=== PATIENT | female | born 1980 | race African-American/Black ===

== ENCOUNTER 2017-01-13 10:52 | Emergency (ER) | payer OTHER ==
[~2017-01-13] VITALS: Ht 165.1 cm; Wt 81.6 kg
[~2017-01-13 10:52] MED LIST: A/B OTIC 54 MG/15 ML OT; NASONEX0.05 MG/Ac INH; PEN-VK500 MG PO; ZOVIRAX5% MM
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
[2017-01-13 12:11] VITALS: BP 92/68
[2017-01-13] MEDS ORDERED: LIDODERM1 EACH TOP (12:16)
[2017-01-13] MEDS ORDERED: NAPROSYN500 M1 PO (12:16)
[2017-01-16] MEDS ORDERED: ROBAXIN500 M1 PO (11:59)
[2017-01-16] MEDS ORDERED: NORCO 5-325 TA1 EACH PO (11:59)
== END 2017-01-13 12:24 ==
LOC: ERH 10:52
DX: M54.9 Dorsalgia, unspecified (principal)
CPT/HCPCS: 96372; J1885

== ENCOUNTER 2017-09-26 11:34 | Inpatient (IN) | payer OTHER ==
[~2017-09-26] VITALS: Ht 162.6 cm; Wt 87.3 kg
[~2017-09-26 11:34] MED LIST changes: +LIDODERM1 EACH TOP; +NAPROSYN500 M1 PO; +NORCO 5-325 TA1 EACH PO; +ROBAXIN500 M1 PO
--- NOTE | 2017-09-26 11:41 | ED PSYCHIATRIC COMPLAINT ---
History of Present Illness General Chief Complaint: Psychiatric Related Complaint Stated Complaint: SI Source: patient, old records, EMS Exam Limitations: no limitations Allergies Coded Allergies: NO KNOWN ALLERGIES (08/22/15) Reconcile Medications Hydrocodone/Acetaminophen ([place] 5-325 Tablet) 5 MG-325 MG TABLET 1-2 TAB PO Q4-6 PRN PRN PAIN Lidocaine (Lidoderm) 5 % ADH..PATCH 1 PAT TOP DAILY PRN back pain may wear up to 12 hours Methocarbamol (Robaxin) 500 MG TABLET 1 TAB PO TID PRN MUSCLE SPASMS Naproxen (Naprosyn) 500 MG TABLET 1 TAB PO BID PRN back pain Triage Nurses Notes Reviewed? yes Onset: Abrupt Duration: week(s):, constant, getting worse Timing: recent history Severity: severe Severity Numbers: 10 Associated Symptoms: suicidal ideation (depression) HPI: 36-year-old female with history of anxiety for which she is prescribed clonidine presents to the ER for evaluation after her family called EMS when she sent a text message stating "I do not want to fight anymore". The patient admits to taking 5 clonidine pills prior to arrival in attempt to "go to sleep for a while " she arrives on please paper. On EMS arrival patient ran out of house crying. On arrival to the ER she states that she is tired of the daily struggle and nothing is going right for her. She denies taking anything else this morning. She smoked marijuana and had a glass of wine last night however denies any drug or alcohol use today. She denies chest pain abdominal pain nausea vomiting. She does not currently follow up with a p she currently lives alone with HER-2 children whom are currently with her mother or sister sychiatrist. She has a previous suicide attempt when she was younger by taking pills as well. (Fransisco Hair) Vital Signs & Intake/Output Vital Signs & Intake/Output Vital Signs Date Time Temp Pulse Resp B/P B/P Pulse O2 O2 Flow FiO2 Mean Ox Delivery Rate 09/26 1949 92/50 09/26 1803 66 86/62 09/26 1457 72 16 80/40 99 Room Air 09/26 1419 97.6 16 99 Room Air 09/26 1414 64 76/50 09/26 1300 64 74/38 09/26 1209 70/40 09/26 1156 98.1 75 18 87/64 100 Room Air (Noemi BENITEZ,Joel Moy) Past History Travel History Traveled to [place] past 21 day No Medical History Any Pertinent Medical History? 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 No (Fransisco Hair) Review of Systems Review of Systems Constitutional: Reports: see HPI. Comments Review of systems: See HPI, All other systems negative. 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 moist mucous membranes. Neck: Supple, normal range of motion Back: Nontender, no CVA tenderness. Full range of motion Cardiovascular: Regular rate and rhythms no murmur Respiratory: No respiratory distress. Patient speaking in full complete sentences. Breath sounds clear to auscultation bilaterally: NO W/R/R Extremity: No edema, full range of motion of extremities Neuro: Alert oriented x3, motor sensory normal, cranial nerves II through XII grossly intact. There were no obvious focal neurologic abnormalities. Skin: No appreciable rash on exposed skin, skin is warm and dry. Psych: Tearful, depressed, memory and judgment is normal. SAD PERSONS SAD PERSONS Response Value Depression/Hopelessness? yes 2 Previous Attempts/Psych Care yes 1 Single//? yes 1 Social Support? has support 0 Stated Future Intent? yes 2 Total 6 SAD PERSONS Done? yes (Fransisco Hair) Progress Differential Diagnosis: DEPRESSION, ANXIETY, POLYSUBSTANCE ABUSE (Fransisco Hair) Plan of Care: Orders Procedure Date/time Status Regular Diet 09/26 D Active Admit to inpatient psych 09/26 1858 Active Add-on Test (ER Only) 09/26 1416 Active EKG 09/26 1331 Active Add-on Test (ER Only) 09/26 1156 Active ACETOMINOPHEN 09/26 1147 Complete SALICYLATE 09/26 1147 Complete ED CRISIS PSYCH CONSULT 09/26 1144 Active Continuous Observation Monitor 09/26 1140 Active URINE 09/26 1140 Complete URINE DRUG SCREEN FOR ER ONLY 09/26 1140 Complete ETHANOL 09/26 1140 Complete COMPREHENSIVE METABOLIC PANEL 09/26 1140 Complete CBC WITHOUT DIFFERENTIAL 09/26 1140 Complete Current Medications Sig/Macie Start time Last Medication Dose Stop Time Status Admin Acetaminophen 650 MG Q4P PRN 09/26 1914 UNVr (Tylenol) Al Hydroxide/Mg 30 ML Q4-6 PRN PRN 09/26 1914 UNVr Hydroxide (Maalox Plus) Benztropine Mesylate 1 MG Q6P PRN 09/26 1914 UNVr (Cogentin 1 MG Tablet) Benztropine Mesylate 1 MG Q6P PRN 09/26 1914 UNVr (Cogentin) Haloperidol 5 MG Q6P PRN 09/26 1914 UNVr (Haldol) Haloperidol 5 MG Q6P PRN 09/26 1914 UNVr (Haldol) Ibuprofen 600 MG Q6P PRN 09/26 1914 UNVr (Motrin) Lorazepam 1.5 MG AT BEDTIME NEED.. 09/26 1914 UNVr (Ativan) Lorazepam 2 MG Q6P PRN 09/26 1914 UNVr (Ativan) Lorazepam 2 MG Q6P PRN 09/26 1914 UNVr (Ativan) Laboratory Tests 09/26/17 1147: Anion Gap 14, Estimated GFR > 60, BUN/Creatinine Ratio 20.0, Glucose 122 H, Calcium 9.0, Total Bilirubin 0.5, AST 18, ALT 24, Alkaline Phosphatase 53, Total Protein 7.2, Albumin 4.2, Globulin 3.0, Albumin/Globulin Ratio 1.4, CBC w Diff NO MAN DIFF REQ, RBC 3.94 L, MCV 89.8, MCH 29.6, MCHC 33.0, RDW 12.4, MPV 8.1, Gran % 68.7, Lymphocytes % 19.2 L, Monocytes % 5.2, Eosinophils % 6.5 H, Basophils % 0.4, Absolute Granulocytes 7.6 H, Absolute Lymphocytes 2.1, Absolute Monocytes 0.6, Absolute Eosinophils 0.7, Absolute Basophils 0, Salicylates < 1.0, Acetaminophen < 10.0 L, Serum Alcohol < 10.0 09/26/17 1146: Urine Opiates Screen < 100, Methadone Screen < 40, Barbiturate Screen < 60, Ur Phencyclidine Scrn < 6.00, Amphetamines Screen < 100, U Benzodiazepines Scrn < 85, Urine Cocaine Screen < 50, Urine Cannabis Screen > 80.00 H 09/26/17 1140: Urine Test NEGATIVE 1150- Crisis consult requested patient is awake, alert oriented 3 at this time. oldrecords reviewed- pts bp was noted to be low 94, 100 systolic in previous er visits. LABS ORDERED 1300 pt mentating well,remains hypotensiveafter 1 liter, case d/w dr hollis who eval pt, agrees with plan, 2 liters ordered. 2nd iv established-medications were verified with C patient was prescribed clonidine 0.1 mg and october I spoke with poison control who advised supportive care hydration observation period of 4 hours from ingestion 09/26/2017 2:22:56 PM patient mentating well, alert oriented times 3 repeat blood pressure 76/50. 1545- patient resting in no apparent distress denies any complaints (Fransisco Hair) Comments: 09/26/2017 1:24:13 PM per [facility]ist, no clonidine or klonopin recently, but clonodine 0.1mg qhs filled october 2015. (Noemi BENITEZ,Joel oMy) Departure Departure Time of Disposition: 184 Disposition: STILL A PATIENT Condition: Stable Clinical Impression Primary Impression: Depression Secondary Impressions: Suicide attempt Referrals: Unknown Departure Forms: Customer Survey General Discharge Information Psych Admission Note Psychiatric Admission: I have seen and evaluated DARYN PATTERSON. I have also reviewed all the pertinent lab results and diagnostic results. DARYN PATTERSON will be admitted to our inpatient Psychiatric unit for treatment and care. (Fransisco Hair) PA/BIOINFORMATICS SOFTWARE ENGINEER Co-Sign Statement Statement: ED Attending supervision documentation- [x] I saw and evaluated the patient. I have also reviewed all the pertinent lab results and diagnostic results. I agree with the findings and the plan of care as documented in the PA's/BIOINFORMATICS SOFTWARE ENGINEER's documentation. Patient presents for evaluation of depression with possible overdose of medication (it is unclear if the patient has ingested clonidine or Klonopin). She states the medication is written for hour of sleep as needed. Physical examination reveals a somnolent but otherwise interactive patient answering questions readily. Patient's physical examination reveals a nonfocal neurologic examination and depressed affect. [] I have reviewed the ED Record and agree with the PA's/BIOINFORMATICS SOFTWARE ENGINEER's documentation. [] Additions or exceptions (if any) to the PAs/BIOINFORMATICS SOFTWARE ENGINEER's note and plan are summarized below: [] (Noemi BENITEZ,Joel Moy)
[2017-09-26 11:56] LABS: ABSOLUTE BASOPHIL COUNT 0 /CUMM (0.0-0.2); ABSOLUTE EOSINOPHIL COUNT 0.7 /CUMM (0.0-0.7); ABSOLUTE GRANULOCYTE CT 7.6 /CUMM (1.4-6.5); ABSOLUTE LYMPH COUNT 2.1 /CUMM (1.2-3.4); ABSOLUTE MONOCYTE COUNT 0.6 /CUMM (0.10-0.60); BASOPHIL % 0.4 % (0.0-2.0); EOSINOPHIL % 6.5 % (0-5); GRANULOCYTE % 68.7 % (42.2-75.2); HEMATOCRIT 35.4 % (37-47); MEAN CORPUSCULAR HGB 29.6 PG (27.0-31.0); MEAN CORPUSCULAR VOLUME 89.8 FL (81.0-99.0); MEAN PLATELET VOLUME 8.1 FL (7.4-10.4); PLATELET COUNT 218 /CUMM (130-400); RBC DISTRIBUTION WIDTH 12.4 % (11.5-14.5); RED BLOOD CELL CT 3.94 /CUMM (4.20-5.40); WHITE BLOOD CELL COUNT 11.1 /CUMM (4.8-10.8)
--- NOTE | 2017-09-26 15:17 | ED PSY CRISIS COLLATERAL NOTE ---
See Addendum Collateral Note Collateral Note Family/Inform/Storm Contacts: Spoke with patient's mother, Elissa, who was the person who called to get help for the patient. Mother states that patient has been "stressed for a long time", largely due to finances. Mother reports that patient has not been in treatment, but feels that she should be. Mother states that she hopes that we can get her into counseling: so there was this agreement that patient needed help, but not such urgency as one might expect, given that patient was brought to [place] on a police paper, after texting that she didn't want to fight anymore, and took 5 clonidine to go to sleep. Patient has 2 children per mother, and her grandmother states that she is very close with them, and feels that patient is "a very good mother ". Patient's mother was anxious to learn what our plan is once it is established. [phone].
--- NOTE | 2017-09-26 16:16 | ED PSYCH CRISIS CONSULTATION ---
Crisis Consult Basic Assessment Date of Consult: 09/26/17 Responsible Person/Accompanied By: mother Khan Insurance Authorization: Insurance #1: Insurance name: KAREN Lentz [employer] Phone number: Policy number: [id number] Group number: Authorization number: ED Provider: Patient's ED Provider: Fransisco Hair Primary Care Physician: Patient's PCP: Patient Has No Primary Care Dr PCP's Phone Number: Current Psychiatrist: none Chief Complaint: Psychiatric Related "I'm Depression. Patient's Quote: "I'm disappointed in myself". I'm struggling." Present Illness: Patient is a 36 year old unmarried female who is the mother of 2 children, ages 7 and 14. Patient reports that there is no male in her life, and that neither child of hers has any relationship with their fathers. Patient had texted her mother and her sister today, stating that she was tired of fighting and just wanted to go to sleep, so she took 5 clonidine pills, and was drowsy. Patient's mother called 911, and patient was sent to [facility] on a police paper, due to her actions. Allergies - Coded Allergies: NO KNOWN ALLERGIES (08/22/15) Current Medications - Scheduled PRN Medications Hydrocodone/Acetaminophen ([place] 5-325 Tablet) 5 MG-325 MG TABLET 1-2 TAB PO Q4-6 PRN PRN PAIN #10 TAB Prescribed by Shanita Harper on 01/16/17 Lidocaine (Lidoderm) 5 % ADH..PATCH 1 PAT TOP DAILY PRN back pain #30 PAT Prescribed by Tiera Diallo on 01/13/17 Methocarbamol (Robaxin) 500 MG TABLET 1 TAB PO TID PRN MUSCLE SPASMS #15 TAB Prescribed by Shanita Harper on 01/16/17 Naproxen (Naprosyn) 500 MG TABLET 1 TAB PO BID PRN back pain #60 TAB Prescribed by Tiera Diallo on 01/13/17 Past History Past Medical History Neurological: NONE EENT: strep throat Cardiovascular: NONE Respiratory: NONE Gastrointestinal: NONE Hepatic: NONE Renal: NONE Musculoskeletal: NONE Psychiatric: anxiety, depression Endocrine: NONE Blood Disorders: NONE Cancer(s): 

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
--- NOTE | 2017-09-26 17:12 | ED PSYCH CRISIS CONSULTATION ---
Crisis Consult Basic Assessment Date of Consult: 09/26/17 Responsible Person/Accompanied By: came in on a PEER/ si attempt Insurance Authorization: Insurance #1: Insurance name: KAREN Lentz C&A Phone number: Policy number: [id number] Group number: Authorization number: ED Provider: Patient's ED Provider: Fransisco Hair Primary Care Physician: Patient's PCP: Patient Has No Primary Care Dr PCP's Phone Number: Current Psychiatrist: Dr. Henson Chief Complaint: Psychiatric Related Complaint Patient's Quote: "I took some pills" Present Illness: Pt is a 36 year old female she arrives on a PEER "she sent text messages to family members stating she did not want to fight anymore" and then took 5 "sleeping pills" or clondine.Pt was observed for 6 hours per poison control protocol, she was groggy but alert and oriented at the time of this eval. She expressed really very very sad, and not on anti depressants she had been prescribed vivance "for my adhd", but a few psychiatrists in [place], one of them "just disappeared", and her current one "treats my family for adhd, that is Dr. Henson. Pt states she has had one previous suicide attempt in which she needed her stomach pumped, she was younger and states she was not admitted to the hospital at that time. She states she has never been to IOP either, she offers " Im usually the one that my family comes to for support, Im smart and strong". Pt lives alone although she has a 14 year old and 7 year old the 14 year old lives with her Godmother in [place], and her son lives with her and stays with her Mother as well, he attends [employer] school in [place]. She states "stumbling blocks of life lead her to feel hopeless, I try to get a job and I went to school and I can't find a job, I feel isolated. Pt just moved to [place] as she was granted section 8 housing "I sleep here, my life is in [place]". Pt states "I can't believe my mind manifest into thinking I want to end my life". Pt uses marijuana and drinks occasionally. She denies hi/ah/vh. Her Mother is in support of her going inpatient as she states "she is depressed and needs help". It seems everything took its toll today, pt had difficulty signing in voluntarily, as she was feeling anxious about what inpatient would be like. Patient's Address: [address] [place] [address] [address] [place] [address] Other Phone Number: Who Do You Live With? Patient/Self Family/Informants Interviewed: see note/ informed Mother about admission and she was relieved feels daughter is in crisis. Allergies - Coded Allergies: NO KNOWN ALLERGIES (08/22/15) Current Medications - Scheduled PRN Medications Hydrocodone/Acetaminophen (Circle 5-325 Tablet) 5 MG-325 MG TABLET 1-2 TAB PO Q4-6 PRN PRN PAIN #10 TAB Prescribed by Shanita Harper on 01/16/17 Lidocaine (Lidoderm) 5 % ADH..PATCH 1 PAT TOP DAILY PRN back pain #30 PAT Prescribed by Tiera Diallo on 01/13/17 Methocarbamol (Robaxin) 500 MG TABLET 1 TAB PO TID PRN MUSCLE SPASMS #15 TAB Prescribed by Shanita Harper on 01/16/17 Naproxen (Naprosyn) 500 MG TABLET 1 TAB PO BID PRN back pain #60 TAB Prescribed by Tiera Diallo on 01/13/17 Laboratory Results: Laboratory Tests 09/26/17 1147: Anion Gap 14, Estimated GFR > 60, BUN/Creatinine Ratio 20.0, Glucose 122 H, Calcium 9.0, Total Bilirubin 0.5, AST 18, ALT 24, Alkaline Phosphatase 53, Total Protein 7.2, Albumin 4.2, Globulin 3.0, Albumin/Globulin Ratio 1.4, CBC w Diff NO MAN DIFF REQ, RBC 3.94 L, MCV 89.8, MCH 29.6, MCHC 33.0, RDW 12.4, MPV 8.1, Gran % 68.7, Lymphocytes % 19.2 L, Monocytes % 5.2, Eosinophils % 6.5 H, Basophils % 0.4, Absolute Granulocytes 7.6 H, Absolute Lymphocytes 2.1, Absolute Monocytes 0.6, Absolute Eosinophils 0.7, Absolute Basophils 0, Salicylates < 1.0, Acetaminophen < 10.0 L, Serum Alcohol < 10.0 09/26/17 1146: Urine Opiates Screen < 100, Methadone Screen < 40, Barbiturate Screen < 60, Ur Phencyclidine Scrn < 6.00, Amphetamines Screen < 100, U Benzodiazepines Scrn < 85, Urine Cocaine Screen < 50, Urine Cannabis Screen > 80.00 H 09/26/17 1140: Urine Test NEGATIVE Past History Past Medical History Neurological: NONE EENT: strep throat Cardiovascular: NONE Respiratory: NONE Gastrointestinal: NONE Hepatic: NONE Renal: NONE Musculoskeletal: NONE Psychiatric: anxiety, depression Endocrine: NONE Blood Disorders: NONE Cancer(s): NONE 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/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: NONE Past Surgical History Surgical History: non-contributory Psychosocial History Strengths/Capabilities: supportive family, finished school looks for job Physical Limitations (Interventions): unknown Psychiatric Treatment History Psych Treatment Psychiatric Treatment Yes Inpatient Treatment No Outpatient Treatment Yes Location of Treatment [place] Reason for Treatment Depression, ADHD Dates of Treatment on and off for many years Response to Treatment has some history of non compliance Diagnosis by History: ADHD, Depression Substance Use/Abuse History Drug Use/Abuse Substances Used/Abused Yes Substance Used/Abused Marijuana First Use early adulthood Last Used yesterday How much used/taken varies How often daily For how long years Route of use inhale Substance Abuse Treatment Substance Abuse Treatment Past Substance Abuse [place] No Current Mental Status Mental Status Orientation: Person, Place, Situation Affect: Anxious, Depressed, Flat, Hopeless, Inappropriate, Sad Speech: Soft Neuro-vegetative: Energy Decreased, Loss of Interest, Sleep Disturbance Appearance Appearance- Dress/Hygiene: tired, easily to fall asleep, arousable when approached Behaviors Thought Process: Disorganized, Irrational Thought Content: WNL Memory: WNL Insight: Poor SI/HI Risk Assessment Past Suicidal Ideation/Attempts Yes Current Suicidal Ideation/Att Yes Past Homicidal Ideation/Att: No Current Homicidal Ideation/Attempts No Degree of Intent: Made Preparations, Plan Danger To: Self Risk Factors: history of suicide atmpts, poor impulse control, lack of outcome concern, lives alone Lethality Ratin PTSD Checklist PTSD Done? pt unable to participate ED Management Sitter: Yes Restraints: No DSM5/PS Stressors/Medical Prob Diagnosis' (DSM 5, Stressors, Medical): MDD, moderate single episode F32.1 by hx ADHD Current GAF: 24 Departure Disposition Psych Medical Clearance Date: 09/26/17 Medically Cleared at: 1700 Time Started: 1700 Time Ended: 1800 Psychiatrist Consulted: Gera Date Disposition Established: 09/26/17 Time Disposition Established: 1800 Plan for Disposition - Modality: Inpatient Psychiatry Facility: [facility] Follow-up Appt Date: 09/26/17 Follow-Up Appt Time: 2010 Contact: Inpatient CPS Telephone: [phone] Rationale for Disposition: Consulted with Dr. Boss, pt attempted suicide today, she is minimizing this attempt, but has signed in volunarily. She is anxious about the process of admission, pt remains cooperative. Type of IP Admission: Voluntary Referrals Patient Has No Primary Care Dr (PCP/Family)
--- NOTE | 2017-09-26 20:30 | IP CRISIS DIAG ASSESS PSYCH ---
See Addendum Diagnostic Assessment Basic Assessment Insurance Authorization: Insurance #1: Insurance name: KAREN Lentz C&A Phone number: Policy number: [id number] Group number: Authorization number: Primary Care Physician: Patient's PCP: Patient Has No Primary Care Dr PCP's Phone Number: Patient's Quote: "I took some pills" Present Illness: Pt is a 36 year old female she arrives on a PEER "she sent text messages to family members stating she did not want to fight anymore" and then took 5 "sleeping pills" or clondine.Pt was observed for 6 hours per poison control protocol, she was groggy but alert and oriented at the time of this eval. She expressed really very very sad, and not on anti depressants she had been prescribed vivance "for my adhd", but a few psychiatrists in [place], one of them "just disappeared", and her current one "treats my family for adhd, that is Dr. Henson. Pt states she has had one previous suicide attempt in which she needed her stomach pumped, she was younger and states she was not admitted to the hospital at that time. She states she has never been to [facility] either, she offers " Im usually the one that my family comes to for support, Im smart and strong". Pt lives alone although she has a 14 year old and 7 year old the 14 year old lives with her Godmother in [place], and her son lives with her and stays with her Mother as well, he attends [employer] school in [place]. She states "stumbling blocks of life lead her to feel hopeless, I try to get a job and I went to school and I can't find a job, I feel isolated. Pt just moved to [place] as she was granted section 8 housing "I sleep here, my life is in [place]". Pt states "I can't believe my mind manifest into thinking I want to end my life". Pt uses marijuana and drinks occasionally. She denies hi/ah/vh. Her Mother is in support of her going inpatient as she states "she is depressed and needs help". It seems everything took its toll today, pt had difficulty signing in voluntarily, as she was feeling anxious about what inpatient would be like. Patient's Address: [address] [place] [address],[place] [address] Other Phone Number: Who Do You Live With? Patient/Self Feel Safe Where You Live? Yes Feel Safe in Your Relationship Yes Marital Status: single Do You Have Children? Yes Ages? 14,7 Primary Language? Montenegrin Language(s) Spoken At Home: Montenegrin Family/Informants Interviewed: see note/ informed Mother about admission and she was relieved feels daughter is in crisis. Allergies - Coded Allergies: NO KNOWN ALLERGIES (08/22/15) Current Medications - Scheduled PRN Medications Hydrocodone/Acetaminophen ([place] 5-325 Tablet) 5 MG-325 MG TABLET 1-2 TAB PO Q4-6 PRN PRN PAIN #10 TAB Prescribed by Shanita Harper on 01/16/17 Lidocaine (Lidoderm) 5 % ADH..PATCH 1 PAT TOP DAILY PRN back pain #30 PAT Prescribed by Tiera Diallo on 01/13/17 Methocarbamol (Robaxin) 500 MG TABLET 1 TAB PO TID PRN MUSCLE SPASMS #15 TAB Prescribed by Shanita Harper on 01/16/17 Naproxen (Naprosyn) 500 MG TABLET 1 TAB PO BID PRN back pain #60 TAB Prescribed by Tiera Diallo on 01/13/17 Lab Results: Laboratory Tests 09/26/17 1147: Anion Gap 14, Estimated GFR > 60, BUN/Creatinine Ratio 20.0, Glucose 122 H, Calcium 9.0, Total Bilirubin 0.5, AST 18, ALT 24, Alkaline Phosphatase 53, Total Protein 7.2, Albumin 4.2, Globulin 3.0, Albumin/Globulin Ratio 1.4, CBC w Diff NO MAN DIFF REQ, RBC 3.94 L, MCV 89.8, MCH 29.6, MCHC 33.0, RDW 12.4, MPV 8.1, Gran % 68.7, Lymphocytes % 19.2 L, Monocytes % 5.2, Eosinophils % 6.5 H, Basophils % 0.4, Absolute Granulocytes 7.6 H, Absolute Lymphocytes 2.1, Absolute Monocytes 0.6, Absolute Eosinophils 0.7, Absolute Basophils 0, Salicylates < 1.0, Acetaminophen < 10.0 L, Serum Alcohol < 10.0 09/26/17 1146: Urine Opiates Screen < 100, Methadone Screen < 40, Barbiturate Screen < 60, Ur Phencyclidine Scrn < 6.00, Amphetamines Screen < 100, U Benzodiazepines Scrn < 85, Urine Cocaine Screen < 50, Urine Cannabis Screen > 80.00 H 09/26/17 1140: Urine Test NEGATIVE Toxicology Screen Completed? Yes Results: positive Symptoms of Use: pt admits to rajuana use Past History Past Surgical History Surgical History Abuse/Trauma History Trauma History/Current Trauma: Denies Legal History Current Legal Status: none Have you ever been arrested? Yes Number of Arrests: [address] Dates: none Mental Health Orderly none Psychosocial History Strengths/Capabilities: supportive family, finished school looks for job Physical Limitations (Interventions): unknown Psychiatric Treatment History Psych Treatment Psychiatric Treatment Yes Inpatient Treatment No Outpatient Treatment Yes Location of Treatment [place] Reason for Treatment Depression, ADHD Dates of Treatment on and off for many years Response to Treatment has some history of non compliance Diagnosis by History: ADHD, Depression Risk Factors: history of suicide atmpts, poor impulse control, lack of outcome concern, lives alone Substance Use/Abuse History Drug Use/Abuse minimum 12mo Hx Substances Used/Abused Yes Substance Used/Abused Marijuana First Use early adulthood Last Used yesterday How much used/taken varies How often daily For how long years Route of use inhale Substance Abuse Treatment Substance Abuse Treatment Past Substance Abuse [place] No Sexual History Sexually Active No Sexual Concerns: None Education History Highest Level of Education: bachelor's degree Preferred Learning Style: experiential Current Mental Status Mental Status Orientation: Person, Place, Situation Affect: Anxious, Depressed, Flat, Hopeless, Inappropriate, Sad Speech: Soft Neuro-vegetative: Energy Decreased, Loss of Interest, Sleep Disturbance Appearance Appearance- Dress/Hygiene: tired, easily to fall asleep, arousable when approached Behaviors Thought Process: Disorganized, Irrational Thought Content: WNL Memory: WNL Insight: Poor SI/HI Risk Assessment - Minimum 6mo History- Past Suicidal Ideation/Attempts Yes Current Suicidal Ideation/Att Yes Past Homicidal Ideation/Att: No Current Homicidal Ideation/Attempts No Degree of Intent: Made Preparations, Plan Danger To: Self Risk Factors: history of suicide atmpts, poor impulse control, lack of outcome concern, lives alone Lethality Ratin Needs/Init [place] Plan/Goals: [facility] Family treatment med management AUDIT-C Questionnaire: AUDIT-C Questionnaire: Response Value ETOH use in the past year 2-4 times/month 2 # drinks typical/day 3 or 4 1 6 or > drinks per occasion Less than monthly 1 Total 4 DSM5/PS Stressors/Medical Prob Diagnosis' (DSM 5, Stressors, Medical): MDD, moderate single episode F32.1 by hx ADHD employment Current GAF: 24
[2017-09-26 22:51] VITALS: BP 84/58
[2017-09-26 23:54] VITALS: BP 94/56
--- NOTE | 2017-09-27 00:04 | History & Physical ---
General Information and HPI MD Statement: I have seen and personally examined DARYN PATTERSON and documented this H&P. The patient is a 36 year old F who presented with a patient stated chief complaint of [ medical evaluation ]. Source of Information: patient Exam Limitations: no limitations History of Present Illness: 36-year-old female with past medical history significant for ADHD, currently not on any medication presented in the ER after suicidal attempt. Patient states that she took 5 tablets of clonidine about half an hour before coming to ER with the suicidal intent. She had left over prescription from last year when clonidine was prescribed for her heart rate control secondary to vyvanse. Patient denies any dizziness, palpitations, skipping heartbeats, blurry vision, double vision after taking the medication, did not pass out or fell down. Otherwise complete ROS unremarkable. She socially drinks alcohol 1-2 times per week, a glass of wine at each time. She socially smokes marijuana once or twice per week, denies smoking cigarettes. Allergies/Medications Allergies: Coded Allergies: NO KNOWN ALLERGIES (08/22/15) Home Med list Hydrocodone/Acetaminophen ([place] 5-325 Tablet) 5 MG-325 MG TABLET 1-2 TAB PO Q4-6 PRN PRN PAIN Lidocaine (Lidoderm) 5 % ADH..PATCH 1 PAT TOP DAILY PRN back pain may wear up to 12 hours Methocarbamol (Robaxin) 500 MG TABLET 1 TAB PO TID PRN MUSCLE SPASMS Naproxen (Naprosyn) 500 MG TABLET 1 TAB PO BID PRN back pain Compliance With Home Meds: FAIR Past History Travel History Traveled to [place] past 21 day No Medical History Neurological: NONE EENT: strep throat Cardiovascular: NONE Respiratory: NONE Gastrointestinal: NONE Hepatic: NONE Renal: NONE Musculoskeletal: NONE Psychiatric: anxiety, depression Endocrine: NONE Blood Disorders: NONE Cancer(s): NONE 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 Home Who Do You Live With? child Services at Home: None Primary Language: Swedish Smoking Status: Never Smoked ETOH Use: occasional use Illicit Drug Use: marijuana Functional Ability ADLs Independent: dressing, eating, toileting, bathing. Ambulation: independent IADLs Independent: shopping, housework, finances, food prep, telephone, transportation , medication admin. Sexual History Past Sexual History Unobtainable at this time Sexually Active No Review of Systems Review of Systems Constitutional: Reports: no symptoms. EENTM: Reports: no symptoms. Cardiovascular: Reports: no symptoms. Respiratory: Reports: no symptoms. GI: Reports: no symptoms. Genitourinary: Reports: no symptoms. Musculoskeletal: Reports: no symptoms. Skin: Reports: no symptoms. Neurological/Psychological: Reports: anxiety, depressed. Hematologic/Endocrine: Reports: no symptoms. Immunologic/Allergic: Reports: no symptoms. Date of LMP: 09/17/17 Exam & Diagnostic Data Last 24 Hrs of Vital Signs/I&O Vital Signs Date Time Temp Pulse Resp B/P B/P Pulse O2 O2 Flow FiO2 Mean Ox Delivery Rate 09/27 0558 68 84/50 09/27 0434 80 82/52 09/27 0216 64 80/52 09/27 0058 72 98/56 09/26 2354 72 94/56 09/26 2251 64 84/58 09/26 1949 92/50 09/26 1803 66 86/62 09/26 1457 72 16 80/40 99 Room Air 09/26 1419 97.6 16 99 Room Air 09/26 1414 64 76/50 09/26 1300 64 74/38 09/26 1209 70/40 09/26 1156 98.1 75 18 87/64 100 Room Air Intake & Output 09/26 1600 09/27 0000 09/27 0800 Intake Total 1000 Output Total Balance 1000 Intake, IV 1000 Patient 87.317 kg Weight Physical Exam General Appearance Alert, Oriented X3, Cooperative, No Acute Distress Skin No Rashes, No Breakdown, No Significant Lesion HEENT Atraumatic, PERRLA, EOMI Neck Supple, No JVD, No thryomegaly, +2 Carotid Pulse wo Bruit Lymphatic Cervical nl Cardiovascular Regular Rate, Normal S1, Normal S2, No Murmurs Lungs Clear to Auscultation, Normal Air Movement Abdomen Normal Bowel Sounds, Soft, No Tenderness, No Hepatospenomegaly Neurological Exam Findings: Normal Gait, Normal Speech, Strength at 5/5 X4 Ext, Normal Tone, Sensation Intact, Cranial Nerves 3-12 NL, Reflexes 2+ Cranial Nerves II through XII: 3 to 12 intact Extremities No Clubbing, No Cyanosis, No Edema, Normal Pulses Vascular Normal Pulses, Pulses Symmetrical Last 24 Hrs of Labs/Anderson: Laboratory Tests 09/27/17 0520: Anion Gap 8, Estimated GFR > 60, BUN/Creatinine Ratio 8.6, Lactic Acid 0.8 09/26/17 1147: Anion Gap 14, Estimated GFR > 60, BUN/Creatinine Ratio 20.0, Glucose 122 H, Calcium 9.0, Total Bilirubin 0.5, AST 18, ALT 24, Alkaline Phosphatase 53, Total Protein 7.2, Albumin 4.2, Globulin 3.0, Albumin/Globulin Ratio 1.4, CBC w Diff NO MAN DIFF REQ, RBC 3.94 L, MCV 89.8, MCH 29.6, MCHC 33.0, RDW 12.4, MPV 8.1, Gran % 68.7, Lymphocytes % 19.2 L, Monocytes % 5.2, Eosinophils % 6.5 H, Basophils % 0.4, Absolute Granulocytes 7.6 H, Absolute Lymphocytes 2.1, Absolute Monocytes 0.6, Absolute Eosinophils 0.7, Absolute Basophils 0, Salicylates < 1.0, Acetaminophen < 10.0 L, Serum Alcohol < 10.0 09/26/17 1146: Urine Opiates Screen < 100, Methadone Screen < 40, Barbiturate Screen < 60, Ur Phencyclidine Scrn < 6.00, Amphetamines Screen < 100, U Benzodiazepines Scrn < 85, Urine Cocaine Screen < 50, Urine Cannabis Screen > 80.00 H 09/26/17 1140: Urine Test NEGATIVE Diagnostic Data EKG Results Reviewed, normal sinus rhythm Assessment/Plan Assessment: # Suicidal ideation with clonidine, to 5 tablets according to her. Blood pressure low throughout the night. Patient asymptomatic, pulse in 60s, orthostatic vitals positive. Blood pressure did not improve much even with bolus of IV fluids on Inpatient Psychiatry. We will transfer patient to telemetry for closer monitoring at least for 12-24 hours. I personally called poison control, who suggested that even though clonidine has shorter life, management would depend on the clinical assessment. Given that her blood pressure is low and she is orthostatic positive she should be monitored closely. Accoring to ER, patient's Bp usually runs low. When I saw previous vitals : at times her BP was 113/60, thus not sure if current low BP is medication effect or her normal. - We'll repeat BMP in the morning - Continue gentle hydration - One-on-one sitter - Patient not on any significant home medications - DVT prophylaxis with Alps As Ranked By This Provider Problem List: 1. Suicide attempt 2. Clonidine overdose Miscellaneous Miscellaneous Documentation Attending Case Discussed With: Gera BENITEZ,[place] Primary Care Physician: Patient Has No Primary Care Dr Patient sees these Specialists [facility] Level of Patient Care: RUPERTO Johansen Attending MD Review Statement Attending Statement Attending MD Statement: I personally interviewed and noted H and P
[2017-09-27 00:58] VITALS: BP 98/56
[2017-09-27 02:16] VITALS: BP 80/52
[2017-09-27 04:34] VITALS: BP 82/52
[2017-09-27 05:58] VITALS: BP 84/50
--- NOTE | 2017-09-27 06:19 | Admission Certification ---
Admission Certification Certification Statement - As attending physician, I certify that at the time of - admission, based on clinical presentation, severity of - symptoms, need for further diagnostic testing and - therapeutic interventions, and risk of adverse outcomes - without in-hospital treatment, in my clinical assessment, - this patient requires an acute hospital stay for a minimum - of two nights or longer. I have also considered psychsocial - factors such as support system, advanced age, financial - issues, cognitive issues, and failed out-patient treatments, - past re-admission history, safety of patient, and lack of - compliance as applicable. Specific rationale supporting this admission is: SI, clonidine overdose
--- NOTE | 2017-09-27 08:12 | Patient Discharge Instructions ---
Psych Discharge Inst General Discharge Information Reason for Admission: suicide attempt Psy Discharge Primary Diag+ MDD, moderate Psy Discharge Secondary Diag+ ADHD Summary Tests/Major Procedures see the ED record Studies Pending at DC: refer to the ED notes and H&P Patient Instructions Contact Information Your Psychiatrist on [facility] was Garfield Boss MD * If you are experiencing an emergency related to this hospitalization, please call [phone] to contact the treating psychiatrist or the psychiatrist-on- call. * To Request a copy of your medical records, please contact the Medical Records Department at [phone]. * To request results of studies pending at the time of discharge, please call [phone]. * Continue your Medications until directed to stop by your Healthcare provider. General Medication Information Please continue to take your new medications and your continued home medications , unless otherwise indicated on your discharge medication list, or unless directed by your MD or MANAGER CRITICAL CARE to stop them. Special Instructions Diet Regular Activity Normal - Tobacco Use Treatment Offered Post DC Medications Offered: Not Applicable Post DC Tobacco Treatment Plan: Not Applicable - EtOH/Drug Use D/O Treatment Offered Post DC Medications Offered: Med Not Indicated for D/O Post DC EtOH/SubAbuse TX Plan: Refused Post DC Tx Pgm (Discharge to medical floor) Metabolic Screening ([X]) Not Applicable, patient not on a neuroleptic. Advance Directives Does the Patient have Medical Advance Directives No/Refused further info Does Pt have Psychiatric Advance Directives? No/Refused further info Does Patient have a Designated Surrogate Decision Maker: No Information About Psychiatric Advance Directives Provided? Refused Discharge Plan Post Hospital Treatment Plan: to medical floor/ICU
--- NOTE | 2017-09-27 08:23 | DISCHARGE SUMMARY REPORT-PSYCH ---
Visit Information Visit Dates/Diagnosis' Admission Date: 09/26/17 Discharge Date: 09/27/17 Reason for Admission: suicide attempt Psy Discharge Primary Diag: MDD, moderate Psy Discharge Secondary Diag: ADHD Hospital Course Significant Lab Findings: Lab Hct 35.4 % L 09/26/17 1147 Hgb 11.7 G/DL L 09/26/17 1147 Course Complications: The patient had a low blood pressure and had to be transferred to the medical floor/ICU Consultations: The patient was seen by the hospitalist/surgical processor. Please refer to the patient' s electronic health record for the hospitalist's notes Allergies: Coded Allergies: NO KNOWN ALLERGIES (08/22/15) Hospital Course/TX Response: The patient was on the inpatient psychiatric unit for a few hours. The patient did not get to be seen by the unit psychiatrist she was admitted and at night and she had to be transferred around 6 AM in the morning because of low blood pressure readings. Discharge HBIPS - Tobacco Use Treatment Offered Post DC Medications Offered: Not Applicable Post DC Tobacco Treatment Plan: Not Applicable - EtOH/Drug Use D/O Treatment Offered Post DC Medications Offered: NA-No EtOH/Drug Use D/O Post DC EtOH/SubAbuse TX Plan: NA-No EtOH/Drug Use D/O Metabolic Screening - Screen if on a Neuroleptic Medication - Metabolic screening should include: - Blood Pressure, BMI, Glucose or Hgb A1c, & a - Lipid profile from within the past 365 days. Metabolic Screening ([X]) Not Applicable, patient not on a neuroleptic. Discharge Instructions General Discharge Information Multiple Neuroleptics: ([X]) Not Applicable Discharge Diet Regular Discharge Activity Normal DC Disposition: Transferred to the medical floor Referrals Ordered Referrals Provider Referral For Groups: [ICU] patient discharged to ICU Prescriptions Stop taking the following medications: Lidocaine (Lidoderm) 5 % ADH..PATCH On the skin DAILY as needed for back pain Qty = 30 Naproxen (Naprosyn) 500 MG TABLET ORAL TWICE DAILY as needed for back pain Qty = 60 Hydrocodone/Acetaminophen ([place] 5-325 Tablet) 5 MG-325 MG TABLET ORAL EVERY 4-6 HOURS NEEDED as needed for PAIN Qty = 10 Methocarbamol (Robaxin) 500 MG TABLET ORAL THREE TIMES DAILY as needed for MUSCLE SPASMS Qty = 15 Studies Pending at Discharge refer to the ED notes and H&P Copies To: N/A
== END 2017-09-27 06:57 | disposition short-term general hospital (02) | DRG 751 ==
LOC: ERH 11:34 → ERHI 18:58 → ENTRNSPT 20:48 → CMPTRNSPT 20:51 → CP SOUTH 21:02
PROVIDERS: Physician Assistant Medical
DX: F32.1 Major depressive disorder, single episode, moderate (principal)
CPT/HCPCS: 36415; 80307; 81025; 82436; 93005; 93010; G0463; G0480; J7040

== ENCOUNTER 2017-09-27 06:37 | Inpatient (IN) | payer OTHER ==
[~2017-09-27] VITALS: Ht 165.1 cm; Wt 85.4 kg
[2017-09-27 08:00] VITALS: BP 90/60
--- NOTE | 2017-09-27 08:05 | History & Physical ---
Guzman Jc 09/27/17 0748: General Information and HPI MD Statement: I have seen and personally examined DARYN PATTERSON and documented this H&P. The patient is a 36 year old F who presented with a patient stated chief complaint of suicide attempt with clonidine and hypotension Source of Information: patient, old records Exam Limitations: no limitations History of Present Illness: This is a 36-year-old female with past medical history significant for anxiety, depression, ADHD presented to the emergency room on 09/26/2017 after suicide attempt with 5 pills of clonidine. Patient was initially admitted to psychiatric department for suicidal ideation. Patient was transferred to ICU as tele hold from psychiatric department for hypotension. Patient presented to emergency room on 09/26/2017 after she attempted suicide with 5 pills of clonidine. She was observed for 6 hours per poison control protocol. She was admitted to psychiatric department at [facility] for further management given her suicidal ideation and attempt. Patient has history of ADHD, she was prescribed Vyvanse in the past for ADHD however because of heart rate control she was given clonidine pills. She took leftover clonidine pills from last year. Patient denies any symptoms, fever, chills, cough, chest pain, short of breath, palpitations, dizzy or lightheadedness, blurry vision, double vision after taking clonidine pills. She denies any nausea, vomiting, abdominal pain, change in bladder or bowel habits, lower extremity edema. No focal neurologic deficits , weakness, sensory changes, gait disturbances, vision changes. Pt states she has had one previous suicide attempt in which she needed her stomach pumped, she was younger and states she was not admitted to the hospital at that time. She states she has never been to [facility] either. She socially drinks alcohol 1-2 times per week, a glass of wine at each time. She socially smokes marijuana once or twice per week, denies smoking cigarettes. Allergies/Medications Allergies: Coded Allergies: NO KNOWN ALLERGIES (08/22/15) Home Med list No Known Home Medications Compliance With Home Meds: GOOD Past History Medical History Neurological: NONE EENT: strep throat Cardiovascular: NONE Respiratory: NONE Gastrointestinal: NONE Hepatic: NONE Renal: NONE Musculoskeletal: NONE Psychiatric: anxiety, depression Endocrine: NONE Blood Disorders: NONE Cancer(s): NONE KNIFE GLAZER/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: NONE History of MRSA: No History of VRE: No History of CDIFF: No Surgical History Surgical History: non-contributory Past Family/Social History Family History Relations & Conditions if any Relation not specified for: *No pertinent family history Psychosocial History Who Do You Live With? child Services at Home: None Primary Language: Bulgarian Smoking Status: Never Smoked ETOH Use: denies use Illicit Drug Use: marijuana Functional Ability ADLs Independent: dressing, eating, toileting, bathing. Ambulation: independent IADLs Independent: shopping, housework, finances, food prep, telephone, transportation , medication admin. Review of Systems Review of Systems Constitutional: Denies: chills, diaphoresis, fever, weakness, unexplained weight loss. EENTM: Denies: blurred vision, double vision. Cardiovascular: Denies: chest pain, edema, orthopena, palpitations, peripheral edema, syncope. Respiratory: Denies: cough, hemoptysis, orthopnea, short of breath, sputum production, stridor. GI: Denies: abdominal pain, bloating, constipation, diarrhea. Genitourinary: Denies: discharge, dysuria, frequency, hematuria, hesitation. Musculoskeletal: Denies: back pain, gout, joint pain. Skin: Denies: dryness, erythema. Neurological/Psychological: Reports: anxiety, depressed, emotional problems. Denies: tingling, tremors. Exam & Diagnostic Data Last 24 Hrs of Vital Signs/I&O Vital Signs Date Time Temp Pulse Resp B/P B/P Pulse O2 O2 Flow FiO2 Mean Ox Delivery Rate 09/27 1010 96/60 09/27 0800 98.4 77 20 90/60 97 Room Air Intake & Output 09/27 1600 09/27 0800 09/27 0000 Intake Total 1460 Output Total Balance 1460 Intake, IV 500 Intake, Oral 960 Number 0 Bowel Movements Patient 85.389 kg Weight Weight Bed scale Measurement Method Physical Exam General Appearance Alert, Oriented X3, Cooperative, No Acute Distress Skin No Rashes, No Breakdown HEENT Atraumatic, PERRLA, EOMI, Mucous Membr. moist/pink Neck Supple, No JVD Lymphatic Cervical nl Cardiovascular Regular Rate, Normal S1, Normal S2, No Murmurs Lungs Clear to Auscultation, Normal Air Movement Abdomen Normal Bowel Sounds, Soft, No Tenderness Neurological Normal Speech, Strength at 5/5 X4 Ext, Normal Tone, Sensation Intact, Cranial Nerves 3-12 NL Extremities No Clubbing, No Cyanosis, No Edema, Normal Pulses Vascular Normal Pulses, Pulses Symmetrical Assessment/Plan Assessment: This is a 36-year-old female with past medical history significant for anxiety, depression, ADHD presented to the emergency room on 09/26/2017 after suicide attempt with 5 pills of clonidine. Patient was initially admitted to psychiatric department for suicidal ideation. Patient was transferred to ICU as tele hold from psychiatric department for hypotension. Patient presented to emergency room on 09/26/2017 after she attempted suicide with 5 pills of clonidine. She was observed for 6 hours per poison control protocol. She was admitted to psychiatric department at [facility] for further management given her suicidal ideation and attempt. Patient has history of ADHD, she was prescribed Vyvanse in the past for ADHD however because of heart rate control she was given clonidine pills. She took leftover clonidine pills from last year. Blood pressure was running low throughout the night, she was transferred to ICU as telemetry hold. Vitals afebrile heart rate varying between 60-75, respiratory rate 18 and blood pressure ranging between 70/40-94/56, saturating at 100% on room air. Pertinent labs WBC 11, hemoglobin 11 and hematocrit 35, platelets 218 Sodium 142, potassium 4.1, BUN 14 creatinine 0.7, glucose 122 UTOX POSITIVE for cannabis, Urine test negative EKG showed Normal sinus rhythm 1. Suicide attempt with clonidine S/P HYPOTENSION Suicidal ideation with clonidine, to 5 tablets according to her. Blood pressure low throughout the night. Patient asymptomatic, pulse in 60s, orthostatic vitals positive. Blood pressure did not improve much even with bolus of IV fluids on Inpatient Psychiatry. Patient was transferred to ICU as telemetry hold for closer monitoring at least for 12-24 hours. poison control was contacted, who suggested that even though clonidine has shorter life, management would depend on the clinical assessment. Given that her blood pressure is low and she is orthostatic positive she should be monitored closely. - Telemetry hold in ICU - Monitor vitals every shift - Closely monitor for blood pressure - Continue gentle hydration - One-on-one sitter -Psychiatric consult - Patient not on any significant home medications - DVT prophylaxis with Alps/heparin - Regular diet - pain pathway As Ranked By This Provider Problem List: 1. Clonidine overdose 2. Suicide attempt 3. Depression Core Measures/Misc (03/05) Acute Coronary Syndrome ACS Diagnosis: No Congestive Heart Failure Congestive Heart Failure Diagnosis No Cerebrovascular Accident CVA/TIA Diagnosis: No VTE (View Protocol) VTE Risk Factors No risk factors No Mechanical VTE Prophylaxis d/t N/A MechProphylax Ordered No VTE Pharm Prophylaxis d/t NA PharmProphylax ordered Sepsis (View protocol) Sepsis Present: No Krishna Mina MD 09/27/17 1624: Attending MD Review Statement Attending Statement Attending MD Statement: examined this patient, discuss w/resident/PA/TRAFFIC TECHNICIAN, agreed w/resident/PA/TRAFFIC TECHNICIAN, reviewed EMR data (avail), amended to note Attending Assessment/Plan: The patient is a 36 yo female with h/o anxiety/depression/ADHD who originally presented in the [place] ED after taking 5 clonidine tablets as a suicidal gesture. She was admitted to [facility]/Psychiatry initially. Her BP remained low on [facility] (84/50) and she was subsequently transferred to medicine service telemetry (telemetry hold in ICU bed) for IV fluids and closer observation. Review of her hx indicates that she normally runs low BP (was 94/61 in 2006 & 92 /68 11/2016 at [place] visits). She denied any lightheadedness, chest pain or dyspnea, no syncope. Physical Exam: VS: T 98.4, P 77, R 20, BP 90/60, PO 97% RA (in ICU) HEENT: eyes- PERRLA, EOMI lory- moist mucosa Neck: no bruits Chest: clear Cor: RRR nl S1, S2 w/o murm Abd: BS+, soft, NT, - HSM Ext: no edema, pulses 2+ Neuro: alert & oriented x 3, non-focal exam, depressed affect Labs/Tests- as above Impression/Plan: #Hypotension- the patient normally runs a low BP as per prior charts (94/61 in 2006, 92/68 in 2016), however was more hypotensive and orthostatic when admitted to [facility]/Psychiatry (74/38 at lowest). She had received IV fluids in ED and [facility]. She remained completely asymptomatic. Had taken Clonidine as above. Plan: Will continue IV fluid bolus as already begun. Monitor BP closely. Transfer back to [facility]/psychiatry later today if BP remains at baseline. #Depression/Suicidal Ideation & Attempt- as above. Patient with significant depression. Plan: As per psychiatry.
[2017-09-27 09:42] LABS: ABSOLUTE BASOPHIL COUNT 0 /CUMM (0.0-0.2); ABSOLUTE EOSINOPHIL COUNT 0.6 /CUMM (0.0-0.7); ABSOLUTE GRANULOCYTE CT 3.6 /CUMM (1.4-6.5); ABSOLUTE LYMPH COUNT 2.9 /CUMM (1.2-3.4); ABSOLUTE MONOCYTE COUNT 0.4 /CUMM (0.10-0.60); BASOPHIL % 0.6 % (0.0-2.0); EOSINOPHIL % 8.6 % (0-5); GRANULOCYTE % 47.4 % (42.2-75.2); MEAN CORPUSCULAR HGB 29.8 PG (27.0-31.0); MEAN CORPUSCULAR HGB CONC 33.5 G/DL (33.0-37.0); MEAN PLATELET VOLUME 9.3 FL (7.4-10.4); PLATELET COUNT 191 /CUMM (130-400); RBC DISTRIBUTION WIDTH 12.3 % (11.5-14.5); RED BLOOD CELL CT 3.48 /CUMM (4.20-5.40); WHITE BLOOD CELL COUNT 7.6 /CUMM (4.8-10.8)
[2017-09-27 10:10] VITALS: BP 96/60
--- NOTE | 2017-09-27 13:20 | Patient Discharge Instructions ---
Discharge Instructions General Discharge Information You were seen/treated for: hypotension Special Instructions: f/u pcp and psychiatrist closely in 1 week after d/c Diet Continue normal diet: Yes Activity Full Activity/No Limits: Yes Acute Coronary Syndrome Inclusion Criteria At DC or during hospital stay patient has or had the following: ACS DIAGNOSIS No Discharge Core Measures Meds if any: Prescribed or Continued at Discharge Meds if any: NOT Prescribed or Continued at Discharge Congestive Heart Failure Inclusion Criteria At DC or during hospital stay patient has or had the following: CHF DIAGNOSIS No Discharge Core Measures Meds if any: Prescribed or Continued at Discharge Meds if any: NOT Prescribed or Continued at Discharge Cerebrovascular accident Inclusion Criteria At DC or during hospital stay patient has or had the following: CVA/TIA Diagnosis No Discharge Core Measures Meds if any: Prescribed or Continued at Discharge Meds if any: NOT Prescribed or Continued at Discharge Venous thromboembolism Inclusion Criteria VTE Diagnosis No VTE Type NONE VTE Confirmed by (Test) NONE Discharge Core Measures - Per Current guidelines, there needs to be overlap - treatment for the first 5 days of Warfarin therapy. - If discharged on Warfarin prior to 5 days of - overlap therapy, the patient will need to be - assessed for post discharge needs including - *Post discharge parental anticoagulation - *Warfarin and/or parental anticoagulation education - *Follow up date to check INR post discharge At least 5 days overlap therapy as Inpatient Yes Meds if any: Prescribed or Continued at Discharge Note: Overlap Therapy is Warfarin and Anticoagulant Meds if any: NOT Prescribed or Continued at Discharge
--- NOTE | 2017-09-27 15:08 | Discharge Summary ---
Hospital Course Allergies: Coded Allergies: NO KNOWN ALLERGIES (08/22/15) Discharge Instructions Medications at Discharge Discharge Medications: Stop taking the following medications: Lidocaine (Lidoderm) 5 % ADH..PATCH On the skin DAILY as needed for back pain Qty = 30 Naproxen (Naprosyn) 500 MG TABLET ORAL TWICE DAILY as needed for back pain Qty = 60 Hydrocodone/Acetaminophen ([place] 5-325 Tablet) 5 MG-325 MG TABLET ORAL EVERY 4-6 HOURS NEEDED as needed for PAIN Qty = 10 Methocarbamol (Robaxin) 500 MG TABLET ORAL THREE TIMES DAILY as needed for MUSCLE SPASMS Qty = 15
== END 2017-09-27 14:12 | DRG 812 ==
LOC: CRI 06:37 → ENTRNSPT 13:34 → EDTRNSPT 13:58 → EDTRNSPTSTS 13:58 → CMPTRNSPT 14:03 → CRI 14:12
PROVIDERS: Hospitalist
DX: T46.5X2A Poisoning by other antihypertensive drugs, intentional self-harm, initial encounter (principal); F41.9 Anxiety disorder, unspecified; I95.2 Hypotension due to drugs; F32.9 Major depressive disorder, single episode, unspecified; F12.90 Cannabis use, unspecified, uncomplicated; F90.9 Attention-deficit hyperactivity disorder, unspecified type; Y92.009 Unspecified place in unspecified non-institutional (private) residence as the place of occurrence of the external cause
CPT/HCPCS: CCU; 36415; 82436; 99233; J1644

== ENCOUNTER 2017-09-27 11:54 | Inpatient (IN) | payer OTHER ==
[~2017-09-27] VITALS: Ht 165.1 cm; Wt 85.0 kg
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
[2017-09-27 14:49] VITALS: BP 102/64
[2017-09-27 16:16] VITALS: BP 108/54
--- NOTE | 2017-09-27 16:56 | PN- Att Addend ---
Attending Addendum Attending Brief Note BRIEF RE-ADMIT NOTE- SEE ORIGINAL H&P FROM DR ROMAN 09/26/17 The patient is a 36 yo female with h/o depression, anxiety, & ADHD who originally presented in the [facility] on 09/26/17 after taking 4 tabs of clonidine as suicidal attempt. She was admitted to [facility]/psychiatry and seen by Dr. Rojo for admission H&P and was noted to be persistently hypotensive and orthostatic (minimum BP 70/40) and had been given IV fluids in the ED and on [facility]. She was subsequently transferred to telemetry bed on medical service ( physically in ICU) for close BP monitoring and IV fluids. Poison control was contacted and did note that Clonidine has short half life, however closer monitoring may be useful. Review of her old records show that she normally runs a BP on the lower end (was 94/61 in 2006 and 92/68 in 2017). She endorses that her BP has always run low. She denied any lightheadedness/syncope, chest pain, dyspnea, or neurologic problems. In the ICU she did receive IV fluids and her BP returned to usual baseline. She was transferred back to [facility]. Meds: Current Medications Sig/Macie Start time Last Medication Dose Route Stop Time Status Admin Acetaminophen 650 MG Q6P PRN 09/27 1245 AC PO Al Hydroxide/Mg 30 ML Q4-6 PRN PRN 09/27 1245 AC Hydroxide PO Benztropine Mesylate 1 MG Q6P PRN 09/27 1245 AC PO Benztropine Mesylate 1 MG Q6P PRN 09/27 1245 AC IM Gabapentin 300 MG Q6P PRN 09/27 1245 AC PO Haloperidol 5 MG Q6P PRN 09/27 1245 AC PO Haloperidol 5 MG Q6P PRN 09/27 1245 AC IM Lorazepam 2 MG Q6P PRN 09/27 1245 AC IM Magnesium Hydroxide 30 ML AT BEDTIME PRN 09/27 1245 AC PO Trazodone HCl 50 MG AT BEDTIME NEED.. 09/27 1245 AC PO Physical Exam: HEENT: eyes- PERRLA, EOMI lory- moist mucosa w/o lesions Neck: no bruits/adenopathy Chest: clear Cor: RRR nl S1, S2 w/o murm Abd: BS+, soft, NT, - HSM Ext: no edema, pulses 2+ Neuro: alert & oriented (depressed affect), non-focal exam, Cranial Nerves 2-12 intact Labs/Tests: EKG- NSR no acute changes Impression/Plan: #Depression/Suicidal Ideation/Attempt- as above, patient with significant depression. Plan: Re-admit to [facility]/Psychiatry. Meds as per psychiatry. #Hypotension- patient at baseline has low BP and her BP was initially lower on admission due to her having taken Clonidine x 4 tablets. As Clonidine has short half life and she has received IV fluids, her BP is now at it's normal baseline. Plan: Will monitor BP as previously. Note her normal is in low 90's for systolic BP. Will observe for any symptoms. #ADHD- by history. Was on Vyvanse. Plan: As per psychiatry. #H/O Chronic Back Pain- no c/o at present. Was on Lidoderm/Robaxin/Naproxen/ Percocet. Plan: OK to continue Lidoderm/Naproxen/Robaxin, however would refrain from opioid use if possible.
[2017-09-27 20:03] VITALS: BP 99/58
[2017-09-28 08:11] VITALS: BP 127/74
--- NOTE | 2017-09-28 09:15 | CPS PROVIDER INIT ASMT PSYCH ---
Psychiatric Admission Named Account Executive's Note Reviewed: Yes Patient Seen and Examined: Yes Identifying Information: 36-year-old Black female Chief Complaint: "My only problem is a lack of a job." Reaction to Hospitalization: she was calm about it but wants out tomorrow because of a DSS appointment that "I can't miss" History of Present Illness Onset of Illness: Pt was observed for 6 hours per poison control protocol, she was groggy but alert and oriented at the time of this eval. She expressed really very very sad, and not on anti depressants she had been prescribed vivance "for my adhd", but a few psychiatrists in [place], one of them "just disappeared", and her current one "treats my family for adhd, that is Dr. Henson. Pt states she has had one previous suicide attempt in which she needed her stomach pumped, she was younger and states she was not admitted to the hospital at that time. Circumstances Leading to Admission: she arrived on a PEER "she sent text messages to family members stating she did not want to fight anymore" and then took 5 "sleeping pills" or clondine. Problem(s) Justifying Need for Admission: overdose on 5 pills of clonidine Past Psychiatric History Past Diagnosis(es)- if any: ADHD Past Precipitating Factors- if any: first psych admission, she did have one previous suicide attempt - Include inpatient and outpatient treatment Treatment History: was on Vyvanse for a diagnosis of ADHD History of Suicide Attempts or Gestures this was her second suspected suicide attempt Substance Abuse History: used cannabis, not heavy Allergies: Coded Allergies: NO KNOWN ALLERGIES (08/22/15) Home Med List: no longer on Vyvanse - Include any medical condition(s) that may - impact the patient's recovery/remission Past Medical History: no physical health problems Past History Medical History Neurological: NONE EENT: strep throat Cardiovascular: NONE Respiratory: NONE Gastrointestinal: NONE Hepatic: NONE Renal: NONE Musculoskeletal: NONE Psychiatric: anxiety, depression Endocrine: NONE Blood Disorders: NONE Cancer(s): NONE 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: 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 History of MRSA: No History of VRE: No History of CDIFF: No Surgical History Surgical History: Psychiatric Family/Social Hx Family History Psychiatric Illness: denied family history of psych illnesses Substance Use: denied family history of substance abuse Suicides: denied suicides among blood relations Other Family History: she is close to her mother Social History Living Situation: [address] apartment in [place] Significant Relationships (family/friends): mother, 2 children (14-year-old daughter and 7-year-old son) Education: College (bachelor's) Vocation/Occupation: Has a job interview on Monday Legal: denied current legal entanglements Healthly Behaviors Screening Tobacco Screening Tobacco Use from ED Docu: Never used - If tobacco counseling indicated - the following topics are required. - #1 Recognizing dangerous situations. - #2 Coping Skills. - #3 Basic information about quitting. Status of Tobacco Cessation Counseling: Not Applicable Cessation Med Status Not Applicable Alcohol Screening - ETOH screen POS if BAL >=80 or Audit-C>= M4/F3 Audit-C Score from Diag Assess: 4 Blood Alcohol Level: Lab Serum Alcohol < 10.0 MG/DL 09/26/17 1147 Alcohol Use Screening Results: Pos per Audit C &/or BAL - If ETOH counseling indicated - the following topics are required. - #1 Express concern about the patient's - drinking at unhealthy levels, include informing - of national norms for moderate drinking: - men <= 14 drinks/week, max 4 drinks/occasion - women <= 7 drinks/week, max 3 drinks/occasion - #2 Providing feedback, including linking alcohol to - negative physical effects (liver injury, hypertension) - negative emotional effects (relationship problems and - depression) - negative occupational consequences (reduced work - performance) - #3 Advising the patient to abstain from alcohol or - to drink below national norms for moderate drinking - (as listed above). Status of ETOH Use Counseling: #1, #2 AND #3 Completed. Metabolic Screening - Screen if on a Neuroleptic Medication - Metabolic screening should include: - Blood Pressure, BMI, Glucose or Hgb A1c, & a - Lipid profile from within the past 365 days. Metabolic Screening ([X]) Not Applicable, patient not on a neuroleptic. Exam and Plan Mental Status Examination Ambulation Status: The patient was independently mobile and steady in her gait Appearance: Unremarkable Attitude towards examiner: Calm and cooperative Psychomotor activity: Normal psychomotor activity Behavior: No abnormal or bizarre behaviors Quality of speech: Normal speech, not pressured, not slurred Affect: Good range of affect Mood: Denied feeling depressed. Suicidal Ideation: Denied having thoughts of suicide. Homicidal Ideation: Denied having violent thoughts or thoughts of homicide. Hallucinations: She denied hallucinations. Paranoid/Delusional Material: She denied feeling paranoid, there were no delusions during the interview. Difficulties with thought organization: There were no difficulties with thought organization. Insight: Patient seems to have reasonable insight Judgment: Patient seems to have reasonable judgment in hypothetical situations Orientation: The patient was alert and oriented to time, place, and person. Cognition: The patient seems to have good attention and concentration. Memory Function: The patient did not show any evidence of short-term memory impairments. Estimate of intellectual functioning: average Assets/Strengths Patient Identified Assets/Strengths: The patient is likable in social Impression/Plan Impression and Plan: 36-year-old single black female who was readmitted to the psychiatric unit after a brief stay on the medical floor because of low blood pressure. The patient was initially admitted because of an overdose on clonidine. - Include all active medical diagnosis that require tx DSM 5 Diagnosis(es): Unspecified depressive disorder, most likely disruptive mood dysregulation disorder - Initial Tx Plan for Active Psych & Medical Conditions Treatment Plan: Inpatient psychiatric care with safety checks every 15 minutes Nursing assessments, vital signs, and patient education. Group therapy, milieu therapy, and activity therapy Biopsychosocial assessment, collateral information and family meeting, and aftercare planning Psychiatrist to evaluate patient's mental status daily and monitor medications daily. - Factors that would help patient function - in a less restrictive setting. Factors: The patient will be discharged if she continues to deny suicidal ideation for the next 24 hours
[2017-09-28 11:52] VITALS: BP 104/63
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
[2017-09-28 16:28] VITALS: BP 125/76
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
[2017-09-28 19:28] VITALS: BP 99/59
[2017-09-29 07:53] VITALS: BP 128/70
--- NOTE | 2017-09-29 07:57 | Patient Discharge Instructions ---
Psych Discharge Inst General Discharge Information Reason for Admission: overdose on 5 tablets of clonidine Psy Discharge Primary Diag+ unspecified depressive DO Psy Discharge Secondary Diag+ ADHD Summary Tests/Major Procedures Lab Hct 31.0 % L 09/27/17 0851 Hgb 10.4 G/DL L 09/27/17 0851 Studies Pending at DC: None Patient Instructions Contact Information Your Psychiatrist on [facility] was Garfield Boss MD * If you are experiencing an emergency related to this hospitalization, please call [phone] to contact the treating psychiatrist or the psychiatrist-on- call. * To Request a copy of your medical records, please contact the Medical Records Department at [phone]. * To request results of studies pending at the time of discharge, please call [phone]. * Continue your Medications until directed to stop by your Healthcare provider. General Medication Information Please continue to take your new medications and your continued home medications , unless otherwise indicated on your discharge medication list, or unless directed by your MD or OIL WELL SERVICE UNIT OPERATOR to stop them. Special Instructions Diet Regular Activity Normal - Tobacco Use Treatment Offered Post DC Medications Offered: Not Applicable Post DC Tobacco Treatment Plan: Not Applicable - EtOH/Drug Use D/O Treatment Offered Post DC Medications Offered: Med Not Indicated for D/O Post DC EtOH/SubAbuse TX Plan: Refused Post DC Tx Pgm Metabolic Screening ([X]) Not Applicable, patient not on a neuroleptic. Advance Directives Does the Patient have Medical Advance Directives No/Refused further info Does Pt have Psychiatric Advance Directives? No/Refused further info Does Patient have a Designated Surrogate Decision Maker: No Information About Psychiatric Advance Directives Provided? Refused Discharge Plan Post Hospital Treatment Plan: Individual Counseling, see referrals section
--- NOTE | 2017-09-29 08:28 | CP SOUTH PROGRESS NOTE PSYCH ---
Psych (Inpt) Progress Note Progress Note Vital Signs Date Time Temp Pulse B/P B/P Pulse O2 O2 Flow FiO2 09/29 0753 98.4 86 128/70 09/28 1928 98.3 87 99/59 09/28 1628 95 125/76 Mental Status Examination The patient was calm and cooperative. Normal psychomotor activity; no abnormal or bizarre behaviors Normal speech, not pressured, not slurred Good range of affect Denied feeling depressed. Denied having thoughts of suicide. Denied having violent thoughts or thoughts of homicide. She denied hallucinations. She denied feeling paranoid, there were no delusions during the interview. There were no difficulties with thought organization. Patient seems to have reasonable insight Patient seems to have reasonable judgment in hypothetical situations The patient was alert and oriented to time, place, and person. The patient seems to have good attention and concentration. The patient did not show any evidence of short-term memory impairments. Assessment: Joan is a 36-year-old single Black female who was readmitted to the psychiatric unit after a brief stay on the medical floor because of low blood pressure. The patient was initially admitted because of an overdose on clonidine. Diagnosis(es): Unspecified depressive disorder, most likely disruptive mood dysregulation disorder Treatment Plan: D/C Home Follow up with individual counseling No psychotropics The patient seems to have good attention and concentration. Memory Function: The patient did not show any evidence of short-term memory impairments. Estimate of intellectual functioning: average Assets/Strengths Patient Identified Assets/Strengths: The patient is likable in social Impression/Plan Impression and Plan: 36-year-old single black female who was readmitted to the psychiatric unit after a brief stay on the medical floor because of low blood pressure. The patient was initially admitted because of an overdose on clonidine. - Include all active medical diagnosis that require tx DSM 5 Diagnosis(es): Unspecified depressive disorder, most likely disruptive mood dysregulation disorder - Initial Tx Plan for Active Psych & Medical Conditions Treatment Plan:
--- NOTE | 2017-09-29 08:30 | DISCHARGE SUMMARY REPORT-PSYCH ---
Visit Information Visit Dates/Diagnosis' Admission Date: 09/27/17 Discharge Date: 09/29/17 Reason for Admission: overdose on 5 tablets of clonidine Psy Discharge Primary Diag: unspecified depressive DO Psy Discharge Secondary Diag: ADHD Hospital Course Significant Lab Findings: Lab Hct 31.0 % L 09/27/17 0851 Hgb 10.4 G/DL L 09/27/17 0851 Course Complications: The patient did not have any complications at this time around. The patient was admitted initially to the psychiatric unit for a very brief period of time and was transferred back to the medical floor/ICU because of low blood pressure Consultations: Please see the many notes from the medical and ICU floor's and the ED regarding consultations in the patient's electronic health record. As mentioned above the patient's was on the inpatient psychiatric unit for about 7 hours or so she was transferred to the ICU and back to the psychiatric floor. Allergies: Coded Allergies: NO KNOWN ALLERGIES (08/22/15) Hospital Course/TX Response: September 28, 2017: Initial Psych Assessment: Impression and Plan: 36-year-old single black female who was readmitted to the psychiatric unit after a brief stay on the medical floor because of low blood pressure. The patient was initially admitted because of an overdose on clonidine. DSM 5 Diagnosis(es): Unspecified depressive disorder, most likely disruptive mood dysregulation disorder Treatment Plan: Inpatient psychiatric care with safety checks every 15 minutes; Nursing assessments, vital signs, and patient education. Group therapy, milieu therapy, and activity therapy; Biopsychosocial assessment, collateral information and family meeting, and aftercare planning; Psychiatrist to evaluate patient's mental status daily and monitor medications daily. September 29, 2017 (the day of discharge) Vital Signs: Temp 98.4, Pulse: 86/min; BP: 128/70 mmHg Mental Status Examination: The patient was calm and cooperative. Normal psychomotor activity; no abnormal or bizarre behaviors Normal speech, not pressured, not slurred Good range of affect Denied feeling depressed. Denied having thoughts of suicide. Denied having violent thoughts or thoughts of homicide. She denied hallucinations. She denied feeling paranoid, there were no delusions during the interview. There were no difficulties with thought organization. Patient seems to have reasonable insight Patient seems to have reasonable judgment in hypothetical situations The patient was alert and oriented to time, place, and person. The patient seems to have good attention and concentration. The patient did not show any evidence of short-term memory impairments. Assessment: Joan is a 36-year-old single Black female who was readmitted to the psychiatric unit after a brief stay on the medical floor because of low blood pressure. The patient was initially admitted because of an overdose on clonidine. Diagnoses: Unspecified depressive disorder, most likely disruptive mood dysregulation disorder ADHD by history Treatment Plan: D/C Home Follow up with individual counseling No psychotropics Discharge HBIPS - Tobacco Use Treatment Offered Post DC Medications Offered: Not Applicable Post DC Tobacco Treatment Plan: Not Applicable - EtOH/Drug Use D/O Treatment Offered Post DC Medications Offered: Med Not Indicated for D/O Post DC EtOH/SubAbuse TX Plan: Refused Post DC Tx Pgm Metabolic Screening - Screen if on a Neuroleptic Medication - Metabolic screening should include: - Blood Pressure, BMI, Glucose or Hgb A1c, & a - Lipid profile from within the past 365 days. Metabolic Screening ([X]) Not Applicable, patient not on a neuroleptic. Discharge Instructions General Discharge Information Multiple Neuroleptics: ([X]) Not Applicable Discharge Diet Regular Discharge Activity Normal DC Disposition: Home Referrals Ordered Referrals Provider Referral 10/03/17 For Groups: [[facility]] [facility] [address] [place] [address] Appointment: 10/03/17, at 9am with Shanita Reddy LPC Studies Pending at Discharge None Copies To: n/a
[2017-09-29 12:37] VITALS: BP 131/73
--- NOTE | 2017-09-29 16:34 | SOCIAL WORKER PROG NOTE PSYCH ---
Social Work Progress Note Progress Note This continuity writer met with the patient prior to the family meeting (phone meeting with patient's mother). She maintained that she is unable to attend IOP due to the time committment and her hopes to secure employment. She was agreeable to individual therapy and was provided with a list of providers. She requested a referral to [facility] in [place] and signed an MIHAELA. She denied SI/HI/ AH/VH. She identified her child and her parveen as protective factors. Dr. Boss, yash and the patient met with the patient's mother, Elissa, who attended by phone for a family meeting. Patient's mother stated that she did not have any safety concerns for her daughter and did not have any concerns regarding discharge today. She stated that the patient will be staying with her upon discharge and she will be with the patient consistently. Patient stated that all medications have been disposed of, which her mother confirmed. Patient and her mother both stated that there are no weapons in the home. Discharge plans were discussed, to which the patient's mother stated that she also felt that the patient would be unable to attend IOP due to the time committment. Elissa was informed that this continuity writer will be making a referral to [facility]. A safety plan was discussed in which patient stated that she would "go to my mom, my sister or my therapist." She was informed that she would be provided with crisis numbers and warm line numbers upon discharge today. Patient and her mother were informed of the IOP at in the event that she feels she would like to pursue that in the future. This continuity writer spoke with Jason Solis LCSW insurance claims processor at [facility] in [place]. An appointment was scheduled for 10/03/17, at 9am with Shanita Reddy LPC. Patient accepted this appointment and expressed gratitude for scheduling the appointment. DCF worker Karen Nicole requested to be informed of discharge plans. As agreed upon with the patient, this continuity writer contacted Karen Niocle informing her of discharge scheduled for today and the individual therapy appointment scheduled for 10/03/17 at 9am. Upon Karen's request, patient contacted her by phone to schedule a time to meet. Faxed Referral(s) Referred To: [facility] Transition of Care Documents sent: Health Summary Faxed to: Shanita Reddy LPC, [facility] Fax #: [phone] Faxed by: Irene Laboy LCSW Date faxed: 09/29/17 Time Faxed: [phone]
--- NOTE | 2017-10-03 18:31 | SOCIAL WORKER PROG NOTE PSYCH ---
Social Work Progress Note Progress Note [facility] discharge clinical entered: Member Name Member ID Member Subscriber Name Subscriber ID DARYN PATTERSON [id number] 1980 DARYN PATTERSON [id number] Related Authorization # Related Client Authorization # Discharge # Discharge Date [id number] 09/29/2017 Level of Service Type of Service Level Of Care Type of Care IP - INPATIENT/HLOC P - Mental Health I - Inpatient [facility] - [facility]
== END 2017-09-29 14:37 | DRG 754 ==
LOC: CP SOUTH 11:54 → ENRESERV 23:59 → CP SOUTH 09-29 14:37
DX: F32.9 Major depressive disorder, single episode, unspecified (principal)
CPT/HCPCS: J0515; J1630